=== PATIENT | female | born 2000 | race Two or more races ===

== ENCOUNTER → 2023-02-04 | Emergency (ER) | payer SELFPAY ==
[~2023-02-04] VITALS: Ht 160 cm; Wt 68.0 kg
[~2023-02-04] MED LIST: ACETAMINOPHEN 325 MG TABLET PO ONE; ACETAMINOPHEN ES 500 MG TABLET ONE; BENZ-13 PO; BENZONATATE 100 MG CAPSULE PO ONE; BENZONATATE 100 MG CAPSULE PO PRN; IBUP-1955 PO; IV NS 0.9% 1,000 ML BAG IV ONE; KETOROLAC TROMETHAMINE 15 MG/ML VIAL IV ONE; KETOROLAC TROMETHAMINE 15 MG/ML VIAL ONE
[2023-02-04 10:15] VITALS: BP 122/72; TEMP 98.8; O2SAT 96
== END | disposition home or self-care (01) ==
LOC: ER 10:11
DX: J06.9 Acute upper respiratory infection, unspecified (principal); R05.9 Cough, unspecified; R09.81 Nasal congestion; J02.9 Acute pharyngitis, unspecified; Z20.822 Contact with and (suspected) exposure to COVID-19
CPT/HCPCS: 99284; 96374; 71045; 96361; 87426; 87804 ×2; J7030; J1885; C9803